=== PATIENT | male | born 1995 | race Two or more races ===

== ENCOUNTER 2018-07-27 08:23 | Emergency (ER) | payer SELFPAY ==
[~2018-07-27] VITALS: Ht 177.8 cm; Wt 74.8 kg
[2018-07-27] MEDS ORDERED: FLUOXETINE HCL20 M2 ORAL (08:42)
[2018-07-27 08:47] VITALS: BP 131/78
--- NOTE | 2018-07-27 08:47 | NUR ---
ER DISCHARGE NOTE: Patient is cleared to be discharged per ERMD, pt is aox4, on room air, with stable vital signs. pt was given dc and prescription instructions, pt was able to verbalize understanding, pt is able to ambulate with steady gait. pt took all belongings.
[2018-07-27 08:48] VITALS: BP 131/78
--- NOTE | 2018-07-28 19:51 | Emergency Room Report ---
History of Present Illness General Chief Complaint: Medication Refill Source: Patient Present Illness HPI Patient is a 22-year-old male who presented after running out of his medications. Patient had prior history of anxiety. He had run out of his anxiety medications as normally followed by psychiatrist in [place]. Patient denies taking a benzodiazepine series reports taking SSRI in the past. He denies any suicidal thoughts or auditory hallucinations. Allergies: Coded Allergies: No Known Allergies (Unverified , 07/27/18) Patient History Past Medical History: see triage record Reviewed Nursing Documentation: PMH: Agreed; PSxH: Agreed Nursing Documentation-PMH Past Medical History: No History, Except For History Of Psychiatric Problem: Yes - unspecified Review of Systems All Other Systems: negative except mentioned in HPI Physical Exam Vital Signs Date Time Temp Pulse Resp B/P (MAP) Pulse Ox O2 Delivery O2 Flow Rate FiO2 07/27/18 08:21 98.2 82 14 131/78 (95) 98 Room Air General Appearance: well appearing, no apparent distress, alert, GCS 15, non- toxic Head: normocephalic, atraumatic ENT: hearing grossly normal, normal voice Neck: full range of motion, supple Respiratory: lungs clear, normal breath sounds, no respiratory distress, speaking full sentences Gastrointestinal: normal inspection Musculoskeletal: normal inspection, no calf tenderness Neurologic: normal inspection, alert, oriented x3, normal gait Psychiatric: normal inspection, judgement/insight normal, mood/affect normal Skin: no rash Medical Decision Making Diagnostic Impression: Primary Impression: Anxiety ER Course Patient presented for anxiety. Differential diagnosis include was not limited to medication withdrawal, post traumatic stress disorder, anxiety among others. Patient has a benign exam and does not appear to require any further imaging or laboratory testing at this time. Patient was noted to be awake and alert and denies any suicidal thoughts on direct questioning. Patient was given prescription for refill of his medications. He was advised to return if he had any concerns. Last Vital Signs Date Time Temp Pulse Resp B/P (MAP) Pulse Ox O2 Delivery O2 Flow Rate FiO2 07/27/18 08:48 98.2 82 14 131/78 98 Room Air Status: improved Disposition: HOME, SELF-CARE Condition: Stable Scripts Fluoxetine Hcl* (FLUOXETINE HCL*) 20 Mg Tablet 20 MG ORAL DAILY, #30 TAB Prov: Remigio Klein MD 07/27/18 Referrals: NOT CHOSEN IPA/,REFERRING (PCP) Patient Instructions: Generalized Anxiety Disorder Remigio Klein MD July 28, 2018 19:51
== END 2018-07-27 09:00 | disposition home or self-care (01) ==
LOC: EDBD 08:23 → EMR 09:00
DX: F41.9 Anxiety disorder, unspecified (principal)
CPT/HCPCS: 99282